=== PATIENT | male | born 1980 | race Caucasian/White ===

== ENCOUNTER 2019-11-10 09:34 | Inpatient (IN) | payer OTHER ==
[~2019-11-10] VITALS: Ht 180.3 cm; Wt 90.9 kg
[2019-11-10] MEDS ORDERED: CLON.5 PO (09:59)
[2019-11-10] MEDS ORDERED: LEVE500T53 PO (09:59)
[2019-11-10] MEDS ORDERED: LevETIRAcetam 500 MG TABLET PO ONE (11:00)
[2019-11-10] MEDS ORDERED: ONDANSETRON HCL 4 MG/2 ML VIAL IVP PRN ×2 (11:15→13:15)
[2019-11-10] MEDS ORDERED: 0.9% SODIUM CHLORIDE 10 ML SYRINGE IVP PRN ×2 (11:15→13:15)
[2019-11-10] MEDS ORDERED: ACETAMINOPHEN 325 MG TABLET PO PRN ×2 (11:15→13:15)
[2019-11-10 11:17] LABS: BASOPHILS % (AUTO) 1.1 % (0.0-2.0); EOSINOPHILS % (AUTO) 2.4 % (1.0-6.0); HEMATOCRIT 38.9 % (41-53); HEMOGLOBIN 12.2 g/dL (13.5-17.5); LYMPHOCYTES # (AUTO) 2.2 K/uL (1.0-4.8); LYMPHOCYTES % (AUTO) 33.1 % (22.0-44.0); MEAN CORPUSCULAR HEMOGLOBIN 22.3 pg (26.0-34.0); MEAN CORPUSCULAR HGB CONC 31.2 G/dL (31.0-37.0); MEAN CORPUSCULAR VOLUME 71 fL (80-100); MONOCYTES # (AUTO) 0.6 K/uL (0.1-1.0); MONOCYTES % (AUTO) 9.2 % (2.0-9.0); NEUTROPHILS # (AUTO) 3.6 K/uL (1.8-7.7); NEUTROPHILS % (AUTO) 54.2 % (40.0-70.0); PLATELET COUNT (AUTO) 215 K/uL (150-450); RED BLOOD CELL COUNT(AUTO) 5.46 MIL/uL (4.50-5.90); RED CELL DISTRIBUTION WIDTH 17.8 % (11.5-14.5)
[2019-11-10 11:31] LABS: ANION GAP 7 mmol/L (8-16); CALCIUM, TOTAL 8.9 mg/dL (8.8-10.5); CARBON DIOXIDE 29 mmol/L (22-29); CHLORIDE 107 mmol/L (98-107); GLOMERULAR FILTR. RATE CALC > 60 mL/min (>60); GLUCOSE,RANDOM 83 mg/dL (70-110); POTASSIUM 4.2 mmol/L (3.5-5.1); SODIUM SERUM 143 mmol/L (136-145); UREA NITROGEN, BLOOD 18 mg/dL (7-18)
[2019-11-10 11:35] LABS: ALANINE AMINOTRANSFERASE 23 U/L (12-78); ALKALINE PHOSPHATASE 67 U/L (46-116); ASPARTATE AMINOTRANSFERASE 14 U/L (15-37); BILIRUBIN,TOTAL 0.3 mg/dL (0.1-1.0); TOTAL PROTEIN, SERUM 7.1 g/dL (6.4-8.2)
[2019-11-10 12:44] VITALS: BP 112/72
[2019-11-10 12:53] LABS: AMPHET/METH SCREEN,URINE NEGATIVE (NEGATIVE); BARBITURATE SCREEN, URINE NEGATIVE (NEGATIVE); BENZODIAZEPINES SCREEN,URINE POSITIVE (NEGATIVE); CANNABINOID SCREEN,URINE POSITIVE (NEGATIVE); COCAINE SCREEN,URINE NEGATIVE (NEGATIVE); METHADONE SCREEN, URINE NEGATIVE (NEGATIVE); OPIATE SCREEN,URINE NEGATIVE (NEGATIVE)
[2019-11-10 12:54] LABS: PHENCYCLIDINE SCREEN,URINE NEGATIVE (NEGATIVE)
[2019-11-10 12:56] LABS: APPEARANCE,URINE CLOUDY (CLEAR); GLUCOSE, URINE (UA) NEGATIVE (NEGATIVE); KETONES,URINE 15 mg/dL (NEGATIVE); LEUKOCYTE ESTERASE ,URINE NEGATIVE (NEGATIVE); NITRATE,URINE NEGATIVE (NEGATIVE); OCCULT BLOOD,URINE NEGATIVE (NEGATIVE); PROTEIN,URINE TRACE (NEGATIVE)
[2019-11-10 12:58] LABS: BILIRUBIN,URINE PRELIM. POSITIVE (NEGATIVE)
[2019-11-10 13:04] LABS: BACTERIA,URINE None Seen /HPF (None Seen); RBC,URINE 0-2 /HPF (0-2); WBC,URINE 0-2 /HPF (0-5)
[2019-11-10] MEDS ORDERED: MAGNESIUM HYDROXIDE SUSPENSION 30 ML UDCUP PO PRN (13:15)
[2019-11-10] MEDS ORDERED: IPRATROPIUM BROMIDE 0.5 MG/2.5 ML NEB SOLUTION NEB PRN (13:15)
[2019-11-10] MEDS ORDERED: BISACODYL 10 MG RECTAL RECTAL SUPPOSITORY PR PRN (13:15)
[2019-11-10] MEDS ORDERED: ClonazePAM 0.5 MG TABLET PO PRN (13:15)
[2019-11-10] MEDS ORDERED: DOCUSATE SODIUM 100 MG CAPSULE PO PRN (13:15)
[2019-11-10] MEDS ORDERED: ALBUTEROL SULFATE 2.5 MG/0.5 ML NEB SOLUTION NEB PRN (13:15)
[2019-11-10] MEDS: NICOTINE 21 MG/24 HOUR PATCH TD SCH (15:23)
[2019-11-10 20:00] VITALS: BP 109/59
[2019-11-10] MEDS: LevETIRAcetam 500 MG TABLET PO SCH (20:10)
[2019-11-10] MEDS: FAMOTIDINE 20 MG TABLET PO SCH (20:13)
[2019-11-10] MEDS: ClonazePAM 1 MG TABLET PO PRN (21:06)
[2019-11-11 04:38] VITALS: BP 118/61
[2019-11-11] MEDS: FAMOTIDINE 20 MG TABLET PO SCH ×2 (08:06→20:53)
[2019-11-11 08:07] LABS: BASOPHILS % (AUTO) 1.6 % (0.0-2.0); EOSINOPHILS % (AUTO) 4.2 % (1.0-6.0); HEMATOCRIT 36.7 % (41-53); HEMOGLOBIN 11.7 g/dL (13.5-17.5); LYMPHOCYTES # (AUTO) 1.8 K/uL (1.0-4.8); LYMPHOCYTES % (AUTO) 35.6 % (22.0-44.0); MEAN CORPUSCULAR HEMOGLOBIN 22.8 pg (26.0-34.0); MEAN CORPUSCULAR HGB CONC 31.9 G/dL (31.0-37.0); MEAN CORPUSCULAR VOLUME 72 fL (80-100); MONOCYTES # (AUTO) 0.4 K/uL (0.1-1.0); MONOCYTES % (AUTO) 7.3 % (2.0-9.0); NEUTROPHILS # (AUTO) 2.5 K/uL (1.8-7.7); NEUTROPHILS % (AUTO) 51.3 % (40.0-70.0); PLATELET COUNT (AUTO) 195 K/uL (150-450); RED BLOOD CELL COUNT(AUTO) 5.12 MIL/uL (4.50-5.90); RED CELL DISTRIBUTION WIDTH 18.2 % (11.5-14.5)
[2019-11-11] MEDS: LevETIRAcetam 500 MG TABLET PO SCH ×2 (08:07→20:53)
[2019-11-11] MEDS: NICOTINE 21 MG/24 HOUR PATCH TD SCH (08:07)
[2019-11-11 08:36] LABS: ANION GAP 5 mmol/L (8-16); CALCIUM, TOTAL 8.5 mg/dL (8.8-10.5); CARBON DIOXIDE 29 mmol/L (22-29); CHLORIDE 105 mmol/L (98-107); CREATININE 0.86 mg/dL (0.60-1.30); GLOMERULAR FILTR. RATE CALC > 60 mL/min (>60); GLUCOSE,RANDOM 82 mg/dL (70-110); POTASSIUM 4.5 mmol/L (3.5-5.1); SODIUM SERUM 139 mmol/L (136-145); UREA NITROGEN, BLOOD 14 mg/dL (7-18)
[2019-11-11] MEDS: ClonazePAM 1 MG TABLET PO PRN (08:43)
[2019-11-11 09:00] VITALS: BP 119/70
[2019-11-11 16:02] VITALS: BP 116/56
[2019-11-11 20:10] VITALS: BP 114/58
[2019-11-12 03:54] VITALS: BP 114/61
[2019-11-12] MEDS: NICOTINE 21 MG/24 HOUR PATCH TD SCH (08:28)
[2019-11-12] MEDS: LevETIRAcetam 500 MG TABLET PO SCH ×2 (08:29→20:42)
[2019-11-12] MEDS: FAMOTIDINE 20 MG TABLET PO SCH ×2 (08:29→20:42)
[2019-11-12] MEDS: ClonazePAM 1 MG TABLET PO PRN (10:45)
[2019-11-12] MEDS ORDERED: HydrOXYzine PAMOATE 50 MG CAPSULE PO PRN (12:00)
[2019-11-12 15:49] VITALS: BP 106/64
[2019-11-12 20:40] VITALS: BP 99/59
[2019-11-13 05:12] VITALS: BP 118/57
[2019-11-13 07:27] VITALS: BP 99/59
[2019-11-13] MEDS: LevETIRAcetam 500 MG TABLET PO SCH ×2 (07:57→21:20)
[2019-11-13] MEDS: FAMOTIDINE 20 MG TABLET PO SCH ×2 (07:57→21:20)
[2019-11-13] MEDS: NICOTINE 21 MG/24 HOUR PATCH TD SCH (07:59)
[2019-11-13 15:49] VITALS: BP 109/61
[2019-11-13] MEDS ORDERED: HYDR50CA9 PO (18:08)
[2019-11-13 19:59] VITALS: BP 115/59
[2019-11-14 04:30] VITALS: BP 110/64
== END 2019-11-14 06:30 | DRG 101 ==
LOC: EMS 09:37 → 6S 11:24
PROVIDERS: ADMIT Internal Medicine; ATTEND Internal Medicine
DX: G40.909 Epilepsy, unspecified, not intractable, without status epilepticus (principal); F13.239 Sedative, hypnotic or anxiolytic dependence with withdrawal, unspecified; F41.1 Generalized anxiety disorder; F29 Unspecified psychosis not due to a substance or known physiological condition; Z02.89 Encounter for other administrative examinations; Z87.891 Personal history of nicotine dependence
CPT/HCPCS: G0480

== ENCOUNTER 2019-11-14 09:56 | Inpatient (IN) | payer OTHER ==
[~2019-11-14] VITALS: Ht 180.3 cm; Wt 90.5 kg
[~2019-11-14 09:56] MED LIST: CLON.5 PO; HYDR50CA9 PO; LEVE500T53 PO
[2019-11-14 10:17] LABS: BASOPHILS % (AUTO) 1.1 % (0.0-2.0); EOSINOPHILS % (AUTO) 1.3 % (1.0-6.0); HEMATOCRIT 38.8 % (41-53); HEMOGLOBIN 12.4 g/dL (13.5-17.5); LYMPHOCYTES # (AUTO) 1.5 K/uL (1.0-4.8); LYMPHOCYTES % (AUTO) 23.5 % (22.0-44.0); MEAN CORPUSCULAR HEMOGLOBIN 22.8 pg (26.0-34.0); MEAN CORPUSCULAR HGB CONC 32.1 G/dL (31.0-37.0); MEAN CORPUSCULAR VOLUME 71 fL (80-100); MONOCYTES # (AUTO) 0.3 K/uL (0.1-1.0); MONOCYTES % (AUTO) 5.4 % (2.0-9.0); NEUTROPHILS # (AUTO) 4.4 K/uL (1.8-7.7); NEUTROPHILS % (AUTO) 68.7 % (40.0-70.0); PLATELET COUNT (AUTO) 183 K/uL (150-450); RED BLOOD CELL COUNT(AUTO) 5.46 MIL/uL (4.50-5.90); RED CELL DISTRIBUTION WIDTH 18.1 % (11.5-14.5)
[2019-11-14 10:28] LABS: ANION GAP 6 mmol/L (8-16); CALCIUM, TOTAL 8.7 mg/dL (8.8-10.5); CARBON DIOXIDE 30 mmol/L (22-29); CHLORIDE 101 mmol/L (98-107); CREATININE 0.95 mg/dL (0.60-1.30); GLOMERULAR FILTR. RATE CALC > 60 mL/min (>60); GLUCOSE,RANDOM 91 mg/dL (70-110); POTASSIUM 3.9 mmol/L (3.5-5.1); SODIUM SERUM 137 mmol/L (136-145); UREA NITROGEN, BLOOD 12 mg/dL (7-18)
[2019-11-14 10:31] LABS: ALANINE AMINOTRANSFERASE 33 U/L (12-78); ALBUMIN 3.9 g/dL (3.4-5.0); ALKALINE PHOSPHATASE 69 U/L (46-116); ASPARTATE AMINOTRANSFERASE 15 U/L (15-37); BILIRUBIN,TOTAL 0.3 mg/dL (0.1-1.0); TOTAL PROTEIN, SERUM 7.1 g/dL (6.4-8.2)
[2019-11-14 10:42] LABS: APPEARANCE,URINE CLEAR (CLEAR); BILIRUBIN,URINE NEGATIVE (NEGATIVE); GLUCOSE, URINE (UA) NEGATIVE (NEGATIVE); KETONES,URINE NEGATIVE (NEGATIVE); LEUKOCYTE ESTERASE ,URINE TRACE (NEGATIVE); NITRATE,URINE NEGATIVE (NEGATIVE); OCCULT BLOOD,URINE NEGATIVE (NEGATIVE); PROTEIN,URINE NEGATIVE (NEGATIVE)
[2019-11-14 10:45] LABS: AMPHET/METH SCREEN,URINE NEGATIVE (NEGATIVE); BARBITURATE SCREEN, URINE NEGATIVE (NEGATIVE); BENZODIAZEPINES SCREEN,URINE NEGATIVE (NEGATIVE); CANNABINOID SCREEN,URINE POSITIVE (NEGATIVE); COCAINE SCREEN,URINE NEGATIVE (NEGATIVE); METHADONE SCREEN, URINE NEGATIVE (NEGATIVE); OPIATE SCREEN,URINE NEGATIVE (NEGATIVE)
[2019-11-14 10:46] LABS: BACTERIA,URINE None Seen /HPF (None Seen); PHENCYCLIDINE SCREEN,URINE NEGATIVE (NEGATIVE); RBC,URINE None Seen /HPF (0-2); SQUAMOUS EPITHELIAL CELL,UR Rare /LPF (None Seen); TRANSITIONAL EPI CELLS,URINE Rare /LPF (None Seen); WBC,URINE 0-2 /HPF (0-5)
[2019-11-14] MEDS ORDERED: ACETAMINOPHEN 325 MG TABLET PO PRN ×2 (12:15→12:30)
[2019-11-14] MEDS ORDERED: ONDANSETRON HCL 4 MG/2 ML VIAL IVP PRN ×2 (12:15→12:30)
[2019-11-14] MEDS ORDERED: 0.9% SODIUM CHLORIDE 10 ML SYRINGE IVP PRN (12:15)
[2019-11-14] MEDS ORDERED: ALBUTEROL SULFATE 2.5 MG/0.5 ML NEB SOLUTION NEB PRN (12:30)
[2019-11-14] MEDS ORDERED: BISACODYL 10 MG RECTAL RECTAL SUPPOSITORY PR PRN (12:30)
[2019-11-14] MEDS ORDERED: DOCUSATE SODIUM 100 MG CAPSULE PO PRN (12:30)
[2019-11-14] MEDS ORDERED: IPRATROPIUM BROMIDE 0.5 MG/2.5 ML NEB SOLUTION NEB PRN (12:30)
[2019-11-14] MEDS ORDERED: MAGNESIUM HYDROXIDE SUSPENSION 30 ML UDCUP PO PRN (12:30)
[2019-11-14] MEDS: PANTOPRAZOLE SODIUM 40 MG DR TABLET PO SCH (13:54)
[2019-11-14 14:03] VITALS: BP 118/53
[2019-11-14] MEDS: LevETIRAcetam 500 MG TABLET PO SCH (20:15)
[2019-11-14 20:20] VITALS: BP 109/53
[2019-11-15 04:30] VITALS: BP 105/55
[2019-11-15 07:31] VITALS: BP 107/52
[2019-11-15] MEDS: PANTOPRAZOLE SODIUM 40 MG DR TABLET PO SCH (08:17)
[2019-11-15] MEDS: LevETIRAcetam 500 MG TABLET PO SCH (08:17)
[2019-11-15 15:25] VITALS: BP 108/64
== END 2019-11-15 16:05 | DRG 897 ==
LOC: EMS 09:57 → 6S 12:15
PROVIDERS: ADMIT Internal Medicine; ATTEND Internal Medicine
DX: F19.239 Other psychoactive substance dependence with withdrawal, unspecified (principal); G40.501 Epileptic seizures related to external causes, not intractable, with status epilepticus; F41.1 Generalized anxiety disorder; T42.4X5A Adverse effect of benzodiazepines, initial encounter; F17.210 Nicotine dependence, cigarettes, uncomplicated; Z02.89 Encounter for other administrative examinations; Y92.89 Other specified places as the place of occurrence of the external cause
CPT/HCPCS: G0480